=== PATIENT | female | born 1995 | race Caucasian/White ===

== ENCOUNTER 2022-09-07 00:13 | Emergency (ER) | payer BC, MEDICAID, OTHER ==
[~2022-09-07] VITALS: Ht 167.6 cm; Wt 100.0 kg
[~2022-09-07 00:13] MED LIST: MEDR150V IM
[2022-09-07] MEDS ORDERED: diphenhydrAMINE 50 mg/ml inj IV ONE (00:30)
[2022-09-07] MEDS ORDERED: ondansetron/PF 4mg/2ml inj IV ONE (00:30)
[2022-09-07] MEDS ORDERED: haloperidol lactate 5mg/ml inj IM ONE ×2 (00:30→01:10)
[2022-09-07] MEDS ORDERED: normal saline 1000ML IV soln IVB ONE ×2 (00:30→01:30)
[2022-09-07] MEDS ORDERED: metoclopramide 5 mg/ml inj IV ONE (00:55)
[2022-09-07 01:08] LABS: ALANINE AMINOTRANSFERASE 75 U/L (12-78); ALBUMIN 4.3 G/DL (3.4-5.0); ALBUMIN/GLOBULIN RATIO 1.1 (1.1-1.5); ALKALINE PHOSPHATASE 114 IU/L (46-116); ANION GAP 20 (8-16); ASPARTATE AMINO TRANSFERASE 40 U/L (10-37); BILIRUBIN,TOTAL 0.4 MG/DL (0.1-1.0); BLOOD UREA NITROGEN 12 MG/DL (7-18); BUN/CREATININE RATIO 10.6 (10.0-20.0); CALCIUM 8.9 MG/DL (8.5-10.1); CHLORIDE 103 MMOL/L (99-107); CREATININE 1.13 MG/DL (0.40-0.90); GLUCOSE 179 MG/DL (70-104); LIPASE 61 U/L (73-393); POTASSIUM 3.5 MMOL/L (3.5-5.1); SODIUM 141 MMOL/L (135-145); TOTAL CARBON DIOXIDE 18.4 MMOL/L (24-32); TOTAL PROTEIN 8.1 G/DL (6.4-8.2); eGFR 57 ML/MIN
[2022-09-07 01:18] LABS: BASOPHILS # (AUTO) 0.1 X10'3 (0-0.2); BASOPHILS % (AUTO) 1.2 % (0-1); EOSINOPHILS % (AUTO) 0.3 % (0-6); HEMATOCRIT 43.4 % (35.0-45.0); HEMOGLOBIN 14.3 g/dl (12.0-16.0); LYMPHOCYTES # (AUTO) 2.5 X10'3 (1.1-4.8); LYMPHOCYTES % (AUTO) 23.2 % (21-51); MEAN CORPUSCULAR HGB CONC 32.9 g/dL (33.0-36.5); MEAN CORPUSCULAR VOLUME 88.1 FL (78-98); MEAN PLATELET VOLUME 8.3 FL (7.4-10.4); MONOCYTES # (AUTO) 0.5 X10'3 (0-0.9); MONOCYTES % (AUTO) 4.9 % (2-12); NEUTROPHILS # (AUTO) 7.6 X10'3 (1.8-7.7); NEUTROPHILS % (AUTO) 70.4 % (42-75); PLATELET COUNT 378 X10'3 (140-440); RED BLOOD COUNT 4.93 X10'6 (4.20-5.60); RED CELL DISTRIBUTION WIDTH 13.3 % (11.5-14.5); WHITE BLOOD COUNT 10.8 X10'3 (4.5-11.0)
[2022-09-07 03:13] LABS: URINE HCG NEGATIVE (NEG)
[2022-09-07 03:18] LABS: CLARITY,URINE SLIGHTLY CLOUDY (Clear); COLOR,URINE YELLOW (Yellow); GLUCOSE, URINE NEGATIVE (Neg); KETONES,URINE 15 mg/dl (Neg); LEUKOCYTE ESTERASE ,URINE NEGATIVE (Neg); NITRITES, URINE NEGATIVE (Neg); OCCULT BLOOD,URINE NEGATIVE (Neg); PROTEIN,URINE NEGATIVE (Neg); UROBILINOGEN,URINE 0.2 E.U/dL (0.2-1.0)
[2022-09-07 03:46] LABS: UA COLLECTION TYPE CLN CATCH MIDSTREAM
[2022-09-07 03:48] LABS: BACTERIA,URINE 2+ /HPF (Neg); RBC,URINE 0-2 /HPF (0-2); SQUAMOUS EPITHELIAL CELL,UR MANY /LPF (FEW); WBC,URINE 0-4 /HPF (0-4); YEAST MODERATE /HPF (NEGATIVE)
[2022-09-07 03:49] LABS: HYALINE CASTS 0-3 /LPF (NEGATIVE)
[2022-09-07] MEDS ORDERED: ONDA4TAB12 PO (04:01)
[2022-09-07 04:10] VITALS: BP 120/65
== END 2022-09-07 04:12 | disposition home or self-care (01) ==
LOC: ER 00:14
DX: R11.2 Nausea with vomiting, unspecified (principal)
CPT/HCPCS: 36415; 80053; 81001; 81025; 83690; 85025; 96361; 96372; 96374; 96375; 99284; J1200; J1630; J2405; J2765; J7030